=== PATIENT | female | born 1960 | race Caucasian/White ===

== ENCOUNTER → 2016-09-20 | Outpatient (CLI) | payer OTHER ==
--- NOTE | 2016-09-20 16:04 | MA ---
Digital Screening Mammogram History: Bilateral breast implants. Screening mammogram. Breast parenchymal density: Type B pattern Technique: Four views of each breast are obtained including CC and oblique lateral Jair (implant di splaced) and non-Jair (implant not displaced) views. CAD is utilized using the iCAD product. Comparison: November 14, 2014; September 12, 2011. Findings: Bilateral breast implants are in place. There are no new masses, abnormal clusters of micro calcifications, or lymphadenopathy. Impression: Negative mammogram. BI-RADS 1. Routine screening is recommended in one year. [facility] will send a result letter to the patient. Negative mammography should not preclude additional workup of a clinically suspicious finding. The patient's information is entered into a reminder system with a target due date for her next mammo gram.
== END ==
LOC: CIMAGING 10:17
DX: Z12.31 Encounter for screening mammogram for malignant neoplasm of breast (principal)
CPT/HCPCS: G0202

== ENCOUNTER → 2018-09-21 | Outpatient (CLI) | payer OTHER | LOC: CIMAGING 07:21 | PROVIDERS: ATTEND Internal Medicine | DX: Z12.31 Encounter for screening mammogram for malignant neoplasm of breast (principal) ==